=== PATIENT | female | born 1945 | race Hispanic/Latino ===

== ENCOUNTER 2018-05-19 07:36 | Day surgery (SDC) | payer MEDICARE, OTHER ==
[~2018-05-19] VITALS: Ht 152.4 cm; Wt 62.7 kg
[~2018-05-19 07:36] MED LIST: AMLO5TAB7 PO; ATOR40TA71 PO; CALC-1062 PO; FOLI1TAB85 PO; LEVO88TA4 PO; OMEP-272 PO; PARO-37 PO; SODIUM CHLORIDE 0.9% 1000ML 1,000 ML IV ONE
[2018-05-19 08:47] VITALS: BP 202/87
[2018-05-19] MEDS ORDERED: PROPOFOL 10 MG/ML 20ML VIAL IV ONE (09:02)
[2018-05-19 09:36] VITALS: BP 162/61
[2018-05-19 09:39] VITALS: BP 162/61
[2018-05-19 09:44] VITALS: BP 163/55
[2018-05-19 09:49] VITALS: BP 173/65
[2018-05-19 10:04] VITALS: BP 187/83
== END 2018-05-19 10:15 | disposition home or self-care (01) ==
LOC: ENDO 07:36 → DAH 07:36 → ENDO 10:15
PROVIDERS: ATTEND Internal Medicine
DX: D12.5 Benign neoplasm of sigmoid colon (principal); D12.2 Benign neoplasm of ascending colon; D12.3 Benign neoplasm of transverse colon; D12.4 Benign neoplasm of descending colon; D12.0 Benign neoplasm of cecum; K62.1 Rectal polyp; Z79.899 Other long term (current) drug therapy; Z98.890 Other specified postprocedural states; E55.9 Vitamin D deficiency, unspecified; I13.10 Hypertensive heart and chronic kidney disease without heart failure, with stage 1 through stage 4 chronic kidney disease, or unspecified chronic kidney disease; E03.9 Hypothyroidism, unspecified; E31.0 Autoimmune polyglandular failure; Z90.49 Acquired absence of other specified parts of digestive tract; Z90.5 Acquired absence of kidney; N18.6 End stage renal disease; Z86.010 Personal history of colon polyps; K21.9 Gastro-esophageal reflux disease without esophagitis; K57.30 Diverticulosis of large intestine without perforation or abscess without bleeding
CPT/HCPCS: 36415; 45380; 45385; 84132; 88305; 93005; A4606; A4649; J2704; J7030; 45382; 45384